=== PATIENT | female | born 1995 | race Caucasian/White ===

== ENCOUNTER 2021-10-20 08:11 | Inpatient (IN) ==
[2021-10-20] MEDS ORDERED: Naloxone 0.4 MG/ML INJ IVP PRN (09:17)
[2021-10-20] MEDS ORDERED: Ondansetron 4 MG/2 ML VIAL IVP PRN (09:17)
[2021-10-20] MEDS ORDERED: Famotidine 20 MG/2 ML VIAL IVP PRN (09:17)
[2021-10-20] MEDS ORDERED: Metoclopramide 10 MG/2 ML VIAL IVP PRN (09:17)
[2021-10-20] MEDS ORDERED: miSOPROStoL 25 MCG TABLET PO STA (09:21)
[2021-10-20 09:39] LABS: Basophils % 0.4 %; Eosinophils # 0.3 K/mcL (0.0-0.6); Eosinophils % 2.8 %; Hematocrit 35.2 % (35.3-44.9); Hemoglobin 11.9 g/dL (11.5-15.4); Immature Granulocytes % 0.7 % (0-4); Lymphocytes # 2.5 K/mcL (0.6-4.6); Lymphocytes % 27.8 %; Mean Corpuscular HGB Conc 33.8 g/dL (31.6-35.5); Mean Corpuscular Hemoglobin 30.7 pg (28.0-33.3); Mean Platelet Volume 10.5 fL (9.4-12.4); Monocytes # 1.1 K/mcL (0.0-1.3); Monocytes % 11.7 %; Neutrophils # 5.1 K/mcL (1.6-8.9); Platelet Count 232 K/mcL (140-400); Red Blood Count 3.87 M/mcL (3.82-4.97); Red Cell Distribution Width 12.5 % (11.5-14.5); Segmented Neutrophils % 56.6 %
[2021-10-20 10:19] LABS: Influenza A PCR Negative (Negative); Influenza B PCR Negative (Negative); Resp. Syncytial Virus PCR Negative (Negative)
[2021-10-20 10:52] LABS: SARS-CoV-2 by PCR (In House) Negative (Negative)
[2021-10-20 11:30] LABS: Amphetamine Screen,Urine Negative ng/mL (Cutoff=1000); Barbiturate Screen,Urine Negative ng/mL (Cutoff=200); Benzodiazepines Screen,Urine Negative ng/mL (Cutoff=200); Cannabinoid Screen,Urine Positive ng/mL (Cutoff = 50); Cocaine Screen,Urine Negative ng/mL (Cutoff= 300); Opiate Screen,Urine Negative ng/mL (Cutoff=300); Phencyclidine Screen,Urine Negative ng/mL (Cutoff=25)
[2021-10-20] MEDS ORDERED: miSOPROStoL 25 MCG TABLET PO ONE (15:09)
[2021-10-20] MEDS: *HR* Nalbuphine 10 MG/ML AMPUL IV PRN ×2 (16:05→18:12)
[2021-10-20] MEDS: Ringers Solution, Lactated 1,000 ML IVC SCH ×2 (16:09→20:03)
[2021-10-20] MEDS ORDERED: EPHEDrine 50 MG/ML VIAL IVP PRN (19:00)
[2021-10-20] MEDS ORDERED: Epidural Premix (fent/bupiv) 110 ML EP SCH (19:00)
[2021-10-20] MEDS ORDERED: Ropivacaine/PF 0.2% 20 ML VIAL EP ONE (19:00)
[2021-10-20] MEDS ORDERED: *HR* FentaNYL (PF) 100 MCG/2 ML VIAL EP ONE (19:00)
[2021-10-20] MEDS ORDERED: Oxytocin 20 units/ LR 1000 mL 20 UNIT/1,000 ML BAG IVC SCH (22:30)
[2021-10-21] MEDS ORDERED: Oxytocin 20 units/ LR 1000 mL 20 UNIT/1,000 ML BAG IVC SCH (09:35)
[2021-10-21] MEDS ORDERED: Benzocaine/Menthol 56 GM AEROSOL SPRAY TP PRN (09:35)
[2021-10-21] MEDS ORDERED: Ondansetron ODT 4 MG TAB.RAPDIS SL PRN (09:35)
[2021-10-21] MEDS ORDERED: Lanolin 7 G OINT...G. TP PRN (09:35)
[2021-10-21] MEDS: Acetaminophen 325 MG TABLET PO SCH ×2 (10:23→16:40)
[2021-10-21] MEDS: Prenatal Vit/FA 1 EACH TABLET PO SCH (10:23)
[2021-10-21] MEDS: Ibuprofen 600 MG TABLET PO SCH (16:40)
[2021-10-21 17:31] VITALS: O2SAT 98
[2021-10-22] MEDS: Ibuprofen 600 MG TABLET PO SCH ×2 (03:54→10:49)
[2021-10-22] MEDS: Acetaminophen 325 MG TABLET PO SCH ×2 (03:54→10:49)
[2021-10-22 05:56] VITALS: BP 93/58
[2021-10-22 06:05] LABS: Basophils % 0.3 %; Eosinophils # 0.3 K/mcL (0.0-0.6); Eosinophils % 1.9 %; Hematocrit 31.1 % (35.3-44.9); Hemoglobin 10.5 g/dL (11.5-15.4); Immature Granulocytes % 0.6 % (0-4); Lymphocytes % 14.4 %; Mean Corpuscular HGB Conc 33.8 g/dL (31.6-35.5); Mean Corpuscular Hemoglobin 31.2 pg (28.0-33.3); Mean Corpuscular Volume 92.3 fL (83.0-100.0); Monocytes # 1.4 K/mcL (0.0-1.3); Monocytes % 9.8 %; Neutrophils # 10.3 K/mcL (1.6-8.9); Platelet Count 203 K/mcL (140-400); Red Blood Count 3.37 M/mcL (3.82-4.97); Red Cell Distribution Width 12.7 % (11.5-14.5)
[2021-10-22 06:55] LABS: White Blood Count 14.1 K/mcL (4.3-11.1)
[2021-10-22] MEDS: Prenatal Vit/FA 1 EACH TABLET PO SCH (07:28)
[2021-10-22 07:32] VITALS: PULSE 91; TEMP 97.7
== END 2021-10-22 12:10 | disposition home or self-care (01) | DRG 560 ==
LOC: 1NENULAB 08:11 → 1NENUOBS 10-21 08:11
PROVIDERS: ADMIT Obstetrics & Gynecology; ATTEND Obstetrics & Gynecology